=== PATIENT | female | born 1980 | race Caucasian/White ===

== ENCOUNTER 2017-07-28 00:45 | Emergency (ER) | payer OTHER ==
[~2017-07-28] VITALS: Ht 160 cm; Wt 58.5 kg
[2017-07-28 00:48] VITALS: Ht 160 cm; Wt 58.5 kg
[2017-07-28 01:46] VITALS: BP 124/89
== END 2017-07-28 01:41 | disposition home or self-care (01) ==
LOC: ED 00:45
DX: J40 Bronchitis, not specified as acute or chronic (principal)
CPT/HCPCS: J7512; Q0092

== ENCOUNTER 2017-08-16 06:54 | Emergency (ER) | payer OTHER ==
[~2017-08-16] VITALS: Ht 162.6 cm; Wt 54.4 kg
[2017-08-16 06:57] VITALS: Ht 162.6 cm; Wt 54.4 kg
[2017-08-16 11:55] VITALS: BP 117/69
== END 2017-08-16 11:50 | disposition home or self-care (01) ==
LOC: ED 06:54
DX: J45.901 Unspecified asthma with (acute) exacerbation (principal); F17.210 Nicotine dependence, cigarettes, uncomplicated; F32.9 Major depressive disorder, single episode, unspecified; F41.9 Anxiety disorder, unspecified; Z90.49 Acquired absence of other specified parts of digestive tract; Z77.098 Contact with and (suspected) exposure to other hazardous, chiefly nonmedicinal, chemicals
CPT/HCPCS: 99406; J2930; J7030; J7613; J7644

== ENCOUNTER 2017-11-27 23:27 | Emergency (ER) | payer OTHER ==
[~2017-11-27] VITALS: Ht 160 cm; Wt 54.4 kg
[2017-11-27 23:32] VITALS: Ht 160 cm; Wt 54.4 kg
[2017-11-28 02:04] VITALS: BP 105/68
== END 2017-11-28 02:04 | disposition home or self-care (01) ==
LOC: ED 23:27
DX: J45.909 Unspecified asthma, uncomplicated (principal); F41.9 Anxiety disorder, unspecified; F17.210 Nicotine dependence, cigarettes, uncomplicated
CPT/HCPCS: J0171; J2930; J3475; J7030; J7613; J7644; Q0092

== ENCOUNTER 2017-12-18 08:21 | Emergency (ER) | payer OTHER ==
[~2017-12-18] VITALS: Ht 160 cm; Wt 54.4 kg
[2017-12-18 08:22] VITALS: Ht 160 cm; Wt 54.4 kg
[2017-12-18 08:54] LABS: BASOPHIL % 1.9 % (0-2); PLATELET COUNT 292 x10^3mcL (130-400)
[2017-12-18 09:02] LABS: RED CELL DISTRIBUTION WIDTH 14.8 % (11.5-14.5)
[2017-12-18 09:10] LABS: CALCIUM 8.2 mg/dL (8.5-10.1); CARBON DIOXIDE 26.1 mmol/L (21-32); CHLORIDE SERUM 107 mmol/L (98-107); CREATININE SERUM 0.7 mg/dL (0.6-1.0); GFR1 > 60 mL/min; GLUCOSE SERUM 85 mg/dL (74-106); POTASSIUM SERUM 3.7 mmol/L (3.5-5.1); SODIUM SERUM 138 mmol/L (136-145)
[2017-12-18 09:15] LABS: ALBUMIN 3.4 g/dL (3.4-5.0); ALKALINE PHOSPHATASE 63 U/L (46-116); ALT/SGPT 36 U/L (14-59); AST/SGOT 21 U/L (15-37); BILIRUBIN TOTAL 0.3 mg/dL (0.20-1.00); TOTAL PROTEIN, SERUM 6.7 g/dL (6.4-8.2)
[2017-12-18 12:29] LABS: AMPHETAMINE QUAL UR POSITIVE (See below)
[2017-12-18 13:20] VITALS: BP 120/82
== END 2017-12-18 13:20 | disposition home or self-care (01) ==
LOC: ED 08:21
PROVIDERS: Emergency Medicine
DX: R06.03 Acute respiratory distress (principal); J45.901 Unspecified asthma with (acute) exacerbation; F41.9 Anxiety disorder, unspecified; F32.9 Major depressive disorder, single episode, unspecified
CPT/HCPCS: J2930; J7030; J7613; J7620; Q0092

== ENCOUNTER 2018-01-26 23:25 | Emergency (ER) | payer OTHER ==
[2018-01-27 00:19] LABS: BASOPHIL % 0.8 % (0-2); PLATELET COUNT 323 x10^3mcL (130-400); RED CELL DISTRIBUTION WIDTH 14.5 % (11.5-14.5)
[2018-01-27 00:28] LABS: CALCIUM 8.6 mg/dL (8.5-10.1); CARBON DIOXIDE 27.1 mmol/L (21-32); CHLORIDE SERUM 104 mmol/L (98-107); CREATININE SERUM 0.8 mg/dL (0.6-1.0); GFR1 > 60 mL/min; GLUCOSE SERUM 89 mg/dL (74-106); POTASSIUM SERUM 3.4 mmol/L (3.5-5.1); SODIUM SERUM 140 mmol/L (136-145)
[2018-01-27 00:33] LABS: ALBUMIN 3.8 g/dL (3.4-5.0); ALKALINE PHOSPHATASE 60 U/L (46-116); ALT/SGPT 45 U/L (14-59); AST/SGOT 24 U/L (15-37); BILIRUBIN TOTAL 0.3 mg/dL (0.20-1.00); TOTAL PROTEIN, SERUM 7.3 g/dL (6.4-8.2)
[2018-01-27 01:32] VITALS: BP 108/80
== END 2018-01-27 01:32 | disposition home or self-care (01) ==
LOC: ED 23:25
PROVIDERS: Emergency Medicine
DX: J45.901 Unspecified asthma with (acute) exacerbation (principal); R09.1 Pleurisy; F17.210 Nicotine dependence, cigarettes, uncomplicated; F41.9 Anxiety disorder, unspecified; F32.9 Major depressive disorder, single episode, unspecified; Z71.6 Tobacco abuse counseling
CPT/HCPCS: 99406; J2405; J2930; J3010; J7613; J7644; Q0092

== ENCOUNTER 2018-09-30 09:21 | Emergency (ER) | payer OTHER ==
[~2018-09-30] VITALS: Ht 160 cm; Wt 60.3 kg
[2018-09-30 09:23] VITALS: Ht 160 cm; Wt 60.3 kg
[2018-09-30 13:39] VITALS: BP 125/72
== END 2018-09-30 13:39 | disposition home or self-care (01) ==
LOC: ED 09:21
DX: J45.909 Unspecified asthma, uncomplicated (principal); F41.9 Anxiety disorder, unspecified; F32.9 Major depressive disorder, single episode, unspecified; F17.200 Nicotine dependence, unspecified, uncomplicated; Z90.49 Acquired absence of other specified parts of digestive tract
CPT/HCPCS: 36600; 99406; J2930; J3475; J7030; J7613; J7644